=== PATIENT | male | born 1985 | race African-American/Black ===

== ENCOUNTER 2021-12-29 06:18 | Emergency (ER) | payer OTHER ==
[~2021-12-29] VITALS: Ht 182.9 cm; Wt 88.5 kg
[2021-12-29] MEDS ORDERED: [UNRECOGNIZED DRUG - OTHER] PO (06:38)
[2021-12-29] MEDS ORDERED: PEPCID AC20 MG PO (11:51)
[2021-12-29] MEDS ORDERED: INTESTINEX680 M1 PO (11:51)
== END 2021-12-29 11:58 | disposition home or self-care (01) ==
LOC: ER 06:18
DX: R19.7 Diarrhea, unspecified (principal)